=== PATIENT | female | born 1950 | race Caucasian/White ===

== ENCOUNTER 2024-05-21 20:43 | Emergency (ER) | payer OTHER ==
[2024-05-21 20:48] VITALS: BP 152/59; PULSE 69; RESP 20; TEMP 97.7; BMI 24.2
== END 2024-05-21 22:12 | disposition home or self-care (01) ==
LOC: JER 20:43
DX: M79.89 Other specified soft tissue disorders (principal)
CPT/HCPCS: 99283-25